=== PATIENT | female | born 2000 | race Caucasian/White ===

== ENCOUNTER 2019-05-26 10:43 | Outpatient (CLI) | payer MEDICAID ==
--- NOTE | 2019-05-26 13:14 | Non Stress Test Report ---
Non Stress Test Datetime Report Generated by CPN: 05/26/2019 13:14 DEMOGRAPHIC EGA NST: 35.1 INDICATION Indication for Study (NST) Other: iup 35.1 weeks macrosomia reactive NST MONITORING Monitor Explained: Monitor Explained; Test Explained; Patient Verbalized Understanding Time on Monitor: 05/26/2019 10:53 Time off Monitor: 05/26/2019 11:22 NST Duration: 29 NST INTERVENTIONS NST Interventions: PO Hydration Physician Notified NST: K Enamorado CNM BABY A: [id number] BABY A Movement : Present Contraction Frequency : occasional FHR Baseline : 140 Accelerations : 15X15 Decelerations : None Variability : Moderate 6-25bpm NST Review: Meets Criteria for Reactive NST NST Review and Verified By : Juan Alberto Patterson RN NST Results: Reactive NST REPORT Report Trigger: Send Report
== END 2019-05-26 11:38 | disposition home or self-care (01) ==
LOC: LC 10:43
PROVIDERS: ATTEND Student in an Organized Health Care Education/Training Program
PROC: 4A1HXCZ Monitoring of Products of Conception, Cardiac Rate, External Approach (ICD-10-PCS; principal; 2019-05-26)
DX: O36.63X0 Maternal care for excessive fetal growth, third trimester, not applicable or unspecified (principal); Z3A.35 35 weeks gestation of pregnancy

== ENCOUNTER 2019-06-06 10:37 | Inpatient (IN) | payer MEDICAID ==
[2019-06-06] MEDS ORDERED: BETAMET ACET/BETAMET NA INJ 6 MG/1 ML IM ONE (10:59)
[2019-06-06 11:13] LABS: APPEARANCE,URINE CLOUDY; BILIRUBIN,URINE NEGATIVE (NEGATIVE); COLOR,URINE YELLOW; GLUCOSE, URINE NEGATIVE (NEGATIVE); KETONES,URINE NEGATIVE (NEGATIVE); LEUKOCYTE ESTERASE,URINE MODERATE (NEGATIVE); NITRITE,URINE NEGATIVE (NEGATIVE); PROTEIN,URINE 30 mg/dL (NEGATIVE); URINE SPECIFIC GRAVITY 1.011; UROBILINOGEN,URINE NEGATIVE mg/dL (<2.0)
[2019-06-06 11:36] LABS: URINE AMPHETAMINES SCREEN NEGATIVE; URINE BARBITURATES SCREEN NEGATIVE; URINE BENZODIAZEPINES SCREEN NEGATIVE; URINE COCAINE SCREEN NEGATIVE; URINE MARIJUANA (THC) SCREEN NEGATIVE; URINE METHADONE SCREEN NEGATIVE; URINE PHENCYCLIDINE SCREEN NEGATIVE
--- NOTE | 2019-06-06 11:45 | Non Stress Test Report ---
Non Stress Test Datetime Report Generated by CPN: 06/06/2019 11:45 DEMOGRAPHIC EGA NST: 36.5 MONITORING Monitor Explained: Monitor Explained; Test Explained; Patient Verbalized Understanding Time on Monitor: 06/06/2019 10:55 Time off Monitor: 06/06/2019 11:41 NST Duration: 46 NST INTERVENTIONS NST Interventions: PO Hydration Physician Notified NST: K. Enamorado, CNM BABY A: [id number] BABY A Movement : Present Contraction Frequency : Rare FHR Baseline : 140 Accelerations : 15X15 Decelerations : None Variability : Moderate 6-25bpm NST Review: Meets Criteria for Reactive NST NST Review and Verified By : Juan Alberto Patterson RN NST Results: Reactive NST REPORT Report Trigger: Send Report
[2019-06-06 11:46] LABS: UR PRO/CREAT RATIO RESULT 0.3 mg/mg (0.0-0.2); URINE CREATININE 129.2 mg/dL (16-327); URINE PROTEIN 32.5 mg/dL (<12)
[2019-06-06 12:01] LABS: ABSOLUTE MONOCYTES (AUTO) 0.5 10^3/uL (0.1-1.4); ABSOLUTE NEUT (AUTO) 4.7 10^3/uL (1.7-8.2); BASOPHILS % (AUTO) 0.2 % (0-2); EOSINOPHILS % (AUTO) 0.4 % (0-6); HEMATOCRIT 30.7 % (36.0-47.0); HEMOGLOBIN 10.9 g/dL (12.0-15.5); LYMPHOCYTES % (AUTO) 27.4 % (13-45); MEAN CORPUSCULAR HEMOGLOBIN 31.4 pg (27.0-33.4); MEAN CORPUSCULAR HGB CONC 35.4 g/dL (32.0-36.0); MEAN CORPUSCULAR VOLUME 89 fl (80-97); MONOCYTES % (AUTO) 6.8 % (3-13); PLATELET COUNT 139 10^3/uL (150-450); RED BLOOD COUNT 3.47 10^6/uL (3.72-5.28); RED CELL DISTRIBUTION WIDTH 13.6 % (11.5-14.0); SEGMENTED NEUTROPHILS % (AUTO) 65.2 % (42-78); TOTAL CELLS COUNTED % (AUTO) 100 %; WHITE BLOOD COUNT 7.2 10^3/uL (4.0-10.5)
[2019-06-06 12:16] LABS: ALBUMIN 2.8 g/dL (3.7-5.6); ALKALINE PHOSPHATASE 205 U/L (50-135); ANION GAP 8 (5-19); ASPARTATE AMINO TRANSFERASE 33 U/L (5-30); BILIRUBIN,DIRECT 0.3 mg/dL (0.0-0.4); BILIRUBIN,TOTAL 0.3 mg/dL (0.2-1.3); BLOOD UREA NITROGEN 9 mg/dL (7-20); CALCIUM 9.7 mg/dL (8.4-10.2); CARBON DIOXIDE 24 mmol/L (22-30); CHLORIDE 105 mmol/L (98-107); POTASSIUM 3.8 mmol/L (3.6-5.0); TOTAL PROTEIN 5.6 g/dL (6.3-8.2); URIC ACID 6.5 mg/dL (2.5-6.2)
[2019-06-06 12:27] LABS: GLUCOSE 69 mg/dL (75-110)
--- NOTE | 2019-06-06 14:03 | RADIOLOGY REPORT (SQ) ---
EXAM DESCRIPTION: U/S OB LIMITED COMPLETED DATE/TIME: 06/06/2019 1:50 pm REASON FOR STUDY: HTN, estimated weight, fluid, presentation COMPARISON: None. TECHNIQUE: Limited transabdominal grayscale ultrasound for evaluation of specific requested obstetri anselmo parameters. LIMITATIONS: None. FINDINGS: CERVICAL LENGTH: Not applicable. Greater than 20 weeks. Need transvaginal study if indicat ed. PATRICE: 12.3 cm. LVP: 2.5 cm x 1.9 cm. FHR: 141 beats per minute. PRESENTATION: Cephalic. PLACENTA: Anterior. ANATOMY: Not assessed OTHER: EGA: 38 weeks 1 day. EDC: 06/19/2019. EFW: 3413 g +/-505 g. EFW: 74% IMPRESSION: LIMITED OBSTETRICAL ULTRASOUND WITH MEASURED PARAMETERS DELINEATED ABOVE. Trimester of : Third trimester - 28 weeks to delivery. TECHNICAL DOCUMENTATION: JOB ID: [id number] [employer]- All Rights Reserved Reading location - IP/workstation name: CARMINA
--- NOTE | 2019-06-06 14:12 | Admission Physical ---
Datetime Report Generated by CPN: 06/06/2019 14:12 CURRENT ADMISSION Chief Complaint: Sent from OB Office for Evaluation and Treatment - Please Specify Indication for Induction: Not Applicable Admit Impression : Obstetrical Complication Admit Impression- Other: GHTN vs Pre Eclampsia GDM Admit Plan: Observation/Evaluation ALLERGIES Medication Allergies: No Medication Allergies: No Known Allergies (05/26/2019) Latex: No Latex Allergies OBSTETRICAL HISTORY EDC: 06/29/2019 00:00 : 2 Para: 0 Term: 0 : 0 SAB: 1 IAB: 0 Ectopic: 0 Livin Cesareans: 0 VBACs: 0 Multiple Births: 0 SEE RECORDS Alcohol: No Marijuana : No Cocaine: No Other Illicit Drugs: No Cigarettes: Never Smoker. [id number] PHYSICAL EXAM General: Normal HEENT: Deferred Neurologic: Normal Thyroid: Deferred Heart: Normal Lungs: Normal Breast: Deferred Back: Deferred Abdomen: Normal Genitourinary Exam: Normal Extremities: Normal DTRs: Normal Pelvic Type: Adequate Vital Signs: Reviewed VAGINAL EXAM Dilatation: 1 Effacement: 50 Station: -2 MEMBRANES Membranes: Intact FETUS A EGA: 36.5 Monitoring: External US FHR- Baseline: 145 Variability: Moderate 6-25bpm Accelerations: 15X15 Decelerations: None Presentation: Vertex Admit Comment: OBS for 24*urine GHTN vs Pre E GDM PLANS FOR LABOR AND DELIVERY Labor and Delivery: None Pain Management: Natural Feeding Preference: Breast Benefit of Breast Feed Discussed: Yes Circumcision: Yes INFORMED CONSENT Assignment: Lor Portillo MD Signature: with User ID: Diana : with User ID: Diana
[2019-06-06 14:19] LABS: T.VAGINALIS (WET MOUNT) NO TRICHOMONAS SEEN; YEAST (WET MOUNT) NO YEAST SEEN
[2019-06-06] MEDS ORDERED: BETAMET ACET/BETAMET NA INJ 6 MG/1 ML ONE (14:19)
[2019-06-06 14:20] LABS: BACTERIA (WET MOUNT) 4+ BACTERIA SEEN; EPITHELIALS (WET MOUNT) 4+ EPITHELIALS SEEN; RBCS (WET MOUNT) FEW RBCS SEEN; WBCS (WET MOUNT) 3+ WBCS SEEN
[2019-06-06] MEDS ORDERED: NIFEDIPINE 30 MG TAB.ER.24 PO ONE (14:20)
[2019-06-06] MEDS: NIFEDIPINE 30 MG TAB.ER.24 PO SCH (14:25)
[2019-06-06] MEDS ORDERED: ACETAMINOPHEN 325 MG TABLET ONE (20:06)
[2019-06-06] MEDS ORDERED: BUTALB/ACETAMINOPHEN/CAFFEINE 1 TAB EACH ONE (20:58)
[2019-06-06] MEDS ORDERED: FAMOTIDINE 20 MG TABLET ONE (21:53)
[2019-06-06] MEDS: FAMOTIDINE 20 MG TABLET PO SCH (21:55)
[2019-06-06] MEDS ORDERED: BUTALB/ACETAMINOPHEN/CAFFEINE 1 TAB EACH PO ONE (22:12)
--- NOTE | 2019-06-06 22:12 | Non Stress Test Report ---
Non Stress Test Datetime Report Generated by CPN: 06/06/2019 22:12 DEMOGRAPHIC EGA NST: 36.5 INDICATION Indication for Study (NST) Other: lc MONITORING Monitor Explained: Monitor Explained; Test Explained; Patient Verbalized Understanding Time on Monitor: 06/06/2019 21:00 Time off Monitor: 06/06/2019 21:39 NST Duration: 39 NST INTERVENTIONS NST Interventions: PO Hydration; Reposition Patient Physician Notified NST: Dr Portillo BABY A: [id number] BABY A Movement : Present Contraction Frequency : irreg FHR Baseline : 125 Accelerations : 15X15 Decelerations : None Variability : Moderate 6-25bpm NST Review: Meets Criteria for Reactive NST NST Review and Verified By : MEGAN Cowart Results: Reactive NST REPORT Report Trigger: Send Report
[2019-06-07 07:13] LABS: HEMATOCRIT 30.9 % (36.0-47.0); HEMOGLOBIN 10.9 g/dL (12.0-15.5); MEAN CORPUSCULAR HEMOGLOBIN 31.2 pg (27.0-33.4); MEAN CORPUSCULAR HGB CONC 35.2 g/dL (32.0-36.0); MEAN CORPUSCULAR VOLUME 89 fl (80-97); PLATELET COUNT 143 10^3/uL (150-450); RED BLOOD COUNT 3.48 10^6/uL (3.72-5.28); RED CELL DISTRIBUTION WIDTH 13.4 % (11.5-14.0); WHITE BLOOD COUNT 10.3 10^3/uL (4.0-10.5)
[2019-06-07 07:24] LABS: ALBUMIN 3.1 g/dL (3.7-5.6); ALKALINE PHOSPHATASE 227 U/L (50-135); ANION GAP 12 (5-19); ASPARTATE AMINO TRANSFERASE 38 U/L (5-30); BILIRUBIN,DIRECT 0.3 mg/dL (0.0-0.4); BILIRUBIN,TOTAL 0.4 mg/dL (0.2-1.3); BLOOD UREA NITROGEN 8 mg/dL (7-20); CALCIUM 8.8 mg/dL (8.4-10.2); CARBON DIOXIDE 19 mmol/L (22-30); CHLORIDE 105 mmol/L (98-107); GLUCOSE 102 mg/dL (75-110); POTASSIUM 3.9 mmol/L (3.6-5.0); TOTAL PROTEIN 5.9 g/dL (6.3-8.2); URIC ACID 7.1 mg/dL (2.5-6.2)
[2019-06-07] MEDS: FAMOTIDINE 20 MG TABLET PO SCH ×2 (09:41→22:02)
[2019-06-07] MEDS: NIFEDIPINE 30 MG TAB.ER.24 PO SCH (09:41)
[2019-06-07 11:37] LABS: URINE PROTEIN 28.7 mg/dL (<12)
[2019-06-07 11:38] LABS: 24 HOUR URINE PROTEIN RESULT 947 mg/day (42-225)
--- NOTE | 2019-06-07 16:49 | PDOC PROGRESS REPORT ---
Subjective Progress Note for:: 06/07/19 Subjective:: Patient states that she feels good. Reports good movement. Patient denies headaches, vision changes and right upper quadrant tenderness. She is not isabela. Reason For Visit: IUP @ 36+6 Physical Exam - Physical Exam Vital Signs: Temp Pulse Resp BP Pulse Ox 98.1 F 100 H 18 139/80 H 97 06/07/19 15:51 06/07/19 15:51 06/07/19 15:51 06/07/19 15:51 06/07/19 15:51 Intake & Output 06/06/19 06/07/19 06/08/19 06:59 06:59 06:59 Output Total 1350 Balance -1350 Weight 118.6 kg General appearance: PRESENT: no acute distress Respiratory exam: PRESENT: clear to auscultation fabiola Cardiovascular exam: PRESENT: RRR GI/Abdominal exam: PRESENT: normal bowel sounds, soft - Negative for right upper quadrant tenderness Extremities exam: PRESENT: +2 edema - Bilateral pedal edema Result Laboratory Results: 06/07/19 06:48 06/07/19 06:48 06/06/19 06/07/19 06/07/19 10:45 06:48 06:48 WBC 10.3 RBC 3.48 L Hgb 10.9 L Hct 30.9 L MCV 89 MCH 31.2 MCHC 35.2 RDW 13.4 Plt Count 143 L Sodium 135.6 L Potassium 3.9 Chloride 105 Carbon Dioxide 19 L Anion Gap 12 BUN 8 Creatinine 0.45 L Est GFR ( Amer) > 60 Glucose 102 Uric Acid 7.1 H Calcium 8.8 Total Bilirubin 0.4 AST 38 H Alkaline Phosphatase 227 H Total Protein 5.9 L Albumin 3.1 L Ur 24 Hour Volume 3300 Ur Total Protein 24 Hr 947 H Impressions: Obstetrics Ultrasound 06/06/19 00:00 IMPRESSION: LIMITED OBSTETRICAL ULTRASOUND WITH MEASURED PARAMETERS DELINEATED ABOVE. Trimester of : Third trimester - 28 weeks to delivery. Assessment & Plan - Diagnosis (1) Preeclampsia Qualifiers: Trimester: third trimester Qualified Code(s): O14.93 - Unspecified pre- eclampsia, third trimester Is this a current diagnosis for this admission?: Yes (2) GDM, class A1 Is this a current diagnosis for this admission?: Yes (3) Obesity Qualifiers: Obesity type: due to excess calories Is this a current diagnosis for this admission?: Yes - Time Time Spent with patient: 15-24 minutes - Plan Summary Plan Summary: 1. Continue current care 2. Cervical ripening with Cervidil overnight for delivery--24-hour urine 900 mg proteinuria 3. Monitor closely
[2019-06-08] MEDS ORDERED: ONDANSETRON 4 MG TAB.RAPDIS PO ONE (09:00)
[2019-06-08] MEDS: NIFEDIPINE 30 MG TAB.ER.24 PO SCH (09:05)
[2019-06-08] MEDS: FAMOTIDINE 20 MG TABLET PO SCH (09:05)
[2019-06-08] MEDS ORDERED: ACETAMINOPHEN 325 MG TABLET PO ONE ×2 (13:00→15:45)
[2019-06-08] MEDS ORDERED: OXYTOCIN 10 UNIT/ML VIAL ONE (13:25)
[2019-06-08] MEDS ORDERED: OXYTOCIN/NORMAL SALINE 20 UNIT/1,000 ML RTUINJ ONE (13:26)
[2019-06-08] MEDS ORDERED: MISOPROSTOL 0.2 MG TABLET ONE (13:26)
[2019-06-08] MEDS ORDERED: LIDOCAINE 1% INJ-PF (10 MG/ML) 30 ML SDV ONE (13:26)
[2019-06-08] MEDS ORDERED: DINOPROSTONE 10 MG VAGINAL INSERT.SR ONE (13:26)
[2019-06-08] MEDS: RINGERS SOLUTION,LACTATED 1,000 ML IV PRN (13:35)
[2019-06-08] MEDS ORDERED: OXYTOCIN/NORMAL SALINE 20 UNIT/1,000 ML RTUINJ IV PRN (13:36)
[2019-06-08] MEDS ORDERED: RINGERS SOLUTION,LACTATED 300 ML IV ONE (13:36)
[2019-06-08] MEDS ORDERED: DINOPROSTONE 10 MG VAGINAL INSERT.SR PV PRN (13:36)
[2019-06-08] MEDS ORDERED: RINGERS SOLUTION,LACTATED 1,000 ML IV PRN (13:37)
[2019-06-08] MEDS ORDERED: NIFEDIPINE 30 MG TAB.ER.24 PO ONE (14:50)
[2019-06-08] MEDS ORDERED: ACETAMINOPHEN 325 MG TABLET ONE ×2 (15:50→21:44)
[2019-06-08] MEDS ORDERED: HYDRALAZINE HCL INJ/PF 20 MG/1 ML SDV IV ONE (16:18)
[2019-06-08] MEDS ORDERED: HYDRALAZINE HCL INJ/PF 20 MG/1 ML SDV ONE (16:19)
[2019-06-08] MEDS ORDERED: MAGNESIUM SULFATE 4 GM/100 ML RTUPB IV ONE ×2 (16:23→16:42)
[2019-06-08] MEDS ORDERED: MAGNESIUM SULFATE 20 GM/500 ML RTUINJ IV ONE (16:42)
[2019-06-08] MEDS: MAGNESIUM SULFATE 20 GM/500 ML RTUINJ IV PRN (17:14)
[2019-06-08] MEDS ORDERED: PROMETHAZINE HCL INJ 25 MG/1 ML VIAL ONE (19:20)
[2019-06-08] MEDS ORDERED: PROMETHAZINE HCL INJ 25 MG/1 ML VIAL IV ONE (19:20)
[2019-06-08] MEDS ORDERED: LABETALOL HCL INJ 20 MG/4 ML DISP.SYRIN IV ONE ×3 (20:19→20:26)
[2019-06-08] MEDS ORDERED: NALBUPHINE HCL INJ 10 MG/1 ML AMPULE INJ ONE (21:32)
[2019-06-08] MEDS ORDERED: MORPHINE SULFATE 10 MG/ML INJ IV ONE (21:43)
[2019-06-08] MEDS ORDERED: MORPHINE SULFATE 10 MG/ML INJ ONE (21:44)
[2019-06-09] MEDS ORDERED: MAGNESIUM SULFATE 20 GM/500 ML RTUINJ IV ONE ×3 (00:29→22:04)
[2019-06-09] MEDS: MAGNESIUM SULFATE 20 GM/500 ML RTUINJ IV PRN ×3 (02:03→22:06)
[2019-06-09] MEDS ORDERED: OXYTOCIN 10 UNIT/ML VIAL ONE (03:14)
[2019-06-09] MEDS ORDERED: MISOPROSTOL 0.2 MG TABLET ONE (03:15)
[2019-06-09] MEDS ORDERED: OXYTOCIN/NORMAL SALINE 0 UNIT/0 ML RTUINJ ONE ×2 (03:15→22:50)
[2019-06-09] MEDS ORDERED: PENICILLIN G-K 5 MILLION UNIT VIAL ONE ×5 (03:15→21:22)
[2019-06-09] MEDS ORDERED: LIDOCAINE 1% INJ-PF (10 MG/ML) 30 ML SDV ONE (03:15)
[2019-06-09] MEDS ORDERED: PENICILLIN G POTASSIUM 5,000,000 UNIT in DEXTROSE 5%-WATER 100 ML IV ONE (04:00)
[2019-06-09] MEDS: FAMOTIDINE 20 MG TABLET PO SCH (05:51)
[2019-06-09 06:56] LABS: ABSOLUTE LYMPHOCYTES (AUTO) 2.3 10^3/uL (0.5-4.7); ABSOLUTE MONOCYTES (AUTO) 1.1 10^3/uL (0.1-1.4); ABSOLUTE NEUT (AUTO) 10.7 10^3/uL (1.7-8.2); BASOPHILS % (AUTO) 0.3 % (0-2); HEMATOCRIT 31.2 % (36.0-47.0); HEMOGLOBIN 10.6 g/dL (12.0-15.5); LYMPHOCYTES % (AUTO) 16.4 % (13-45); MEAN CORPUSCULAR HEMOGLOBIN 30.7 pg (27.0-33.4); MEAN CORPUSCULAR VOLUME 90 fl (80-97); PLATELET COUNT 167 10^3/uL (150-450); RED BLOOD COUNT 3.45 10^6/uL (3.72-5.28); SEGMENTED NEUTROPHILS % (AUTO) 75.3 % (42-78); TOTAL CELLS COUNTED % (AUTO) 100 %; WHITE BLOOD COUNT 14.2 10^3/uL (4.0-10.5)
[2019-06-09 07:14] LABS: ALBUMIN 3.2 g/dL (3.7-5.6); ALKALINE PHOSPHATASE 247 U/L (50-135); ANION GAP 11 (5-19); ASPARTATE AMINO TRANSFERASE 36 U/L (5-30); BILIRUBIN,DIRECT 0.3 mg/dL (0.0-0.4); BILIRUBIN,TOTAL 0.3 mg/dL (0.2-1.3); BLOOD UREA NITROGEN 8 mg/dL (7-20); CALCIUM 8.9 mg/dL (8.4-10.2); CARBON DIOXIDE 20 mmol/L (22-30); CHLORIDE 103 mmol/L (98-107); GLUCOSE 93 mg/dL (75-110); POTASSIUM 3.8 mmol/L (3.6-5.0); TOTAL PROTEIN 6.2 g/dL (6.3-8.2); URIC ACID 6.9 mg/dL (2.5-6.2)
[2019-06-09] MEDS ORDERED: ONDANSETRON HCL INJ/PF 4 MG/2 ML SDV IV ONE (08:46)
[2019-06-09] MEDS ORDERED: ONDANSETRON HCL INJ/PF 4 MG/2 ML SDV ONE (08:56)
[2019-06-09] MEDS: PENICILLIN G POTASSIUM 2,500,000 UNIT in DEXTROSE 5%-WATER 50 ML IV SCH ×4 (09:13→21:35)
[2019-06-09] MEDS ORDERED: HYDROMORPHONE HCL INJ/PF 2 MG/ML AMPULE ONE (09:42)
[2019-06-09] MEDS ORDERED: LABETALOL HCL INJ 20 MG/4 ML DISP.SYRIN IV ONE ×3 (09:43→16:21)
[2019-06-09] MEDS ORDERED: HYDROMORPHONE HCL INJ/PF 2 MG/ML AMPULE IV ONE ×2 (11:00→13:57)
[2019-06-09] MEDS: RINGERS SOLUTION,LACTATED 1,000 ML IV PRN (13:00)
[2019-06-09] MEDS ORDERED: ONDANSETRON HCL 8 MG TABLET ONE (13:18)
[2019-06-09] MEDS ORDERED: ONDANSETRON HCL 8 MG TABLET PO ONE (13:19)
[2019-06-09 14:53] LABS: HEMATOCRIT 31.3 % (36.0-47.0); HEMOGLOBIN 10.7 g/dL (12.0-15.5); MEAN CORPUSCULAR HGB CONC 34.2 g/dL (32.0-36.0); MEAN CORPUSCULAR VOLUME 91 fl (80-97); PLATELET COUNT 161 10^3/uL (150-450); RED BLOOD COUNT 3.46 10^6/uL (3.72-5.28); RED CELL DISTRIBUTION WIDTH 14.2 % (11.5-14.0)
[2019-06-09 15:07] LABS: ALBUMIN 3.2 g/dL (3.7-5.6); ALKALINE PHOSPHATASE 264 U/L (50-135); ANION GAP 12 (5-19); ASPARTATE AMINO TRANSFERASE 33 U/L (5-30); BILIRUBIN,DIRECT 0.3 mg/dL (0.0-0.4); BILIRUBIN,TOTAL 0.4 mg/dL (0.2-1.3); BLOOD UREA NITROGEN 7 mg/dL (7-20); CALCIUM 8.7 mg/dL (8.4-10.2); CARBON DIOXIDE 20 mmol/L (22-30); CHLORIDE 101 mmol/L (98-107); GLUCOSE 90 mg/dL (75-110); POTASSIUM 3.9 mmol/L (3.6-5.0)
[2019-06-09 15:36] LABS: ABSOLUTE LYMPHOCYTES# (MANUAL) 2.1 10^3/uL (0.5-4.7); ABSOLUTE MONOCYTES # (MANUAL) 0.6 10^3/uL (0.1-1.4); BASOPHILS % (MANUAL) 0 % (0-2); EOSINOPHILS % (MANUAL) 0 % (0-6); LYMPHOCYTES % (MANUAL) 15 % (13-45); MONOCYTES % (MANUAL) 4 % (3-13); PLATELET COMMENT ADEQUATE; SEGMENTED NEUTROPHILS % (MAN) 81 % (42-78); TOTAL CELLS COUNTED 100
[2019-06-09 15:37] LABS: HYPOCHROMASIA SLIGHT; POLYCHROMASIA SLIGHT
[2019-06-09] MEDS ORDERED: EPHEDRINE SULFATE INJ 50 MG/1 ML AMPULE ONE (16:55)
[2019-06-09] MEDS ORDERED: FENTANYL CITRATE INJ/PF 100 MCG/2 ML AMPUL ONE (16:55)
[2019-06-09] MEDS ORDERED: PHENYLEPHRINE HCL INJ/PF 10 MG/1 ML SDV ONE (16:55)
[2019-06-09] MEDS ORDERED: BUPIVACAINE HCL 0.25 % INJ/PF (2.5 MG/1 ML) 30 ML VIAL ONE (16:56)
[2019-06-09] MEDS ORDERED: FENTANYL/BUPIVACAINE/NS/PF 300 MCG/150 ML RTUINJ EPI ONE (16:56)
[2019-06-09] MEDS ORDERED: LIDOCAINE 1.5%/EPINEPHRINE INJ 5 ML AMP ONE (18:05)
[2019-06-09] MEDS ORDERED: CALCIUM CARBONATE 500 MG TAB.CHEW PO ONE (21:21)
[2019-06-09] MEDS ORDERED: OXYTOCIN/NORMAL SALINE 20 UNIT/1,000 ML RTUINJ IV PRN (22:48)
[2019-06-10] MEDS ORDERED: PENICILLIN G-K 5 MILLION UNIT VIAL ONE ×2 (01:19→05:34)
[2019-06-10] MEDS: PENICILLIN G POTASSIUM 2,500,000 UNIT in DEXTROSE 5%-WATER 50 ML IV SCH ×4 (01:30→12:08)
[2019-06-10] MEDS ORDERED: FENTANYL/BUPIVACAINE/NS/PF 300 MCG/150 ML RTUINJ EPI ONE (04:22)
[2019-06-10] MEDS: RINGERS SOLUTION,LACTATED 1,000 ML IV PRN (06:23)
[2019-06-10] MEDS ORDERED: CEFAZOLIN INJ 1 GM VIAL ONE ×2 (07:06)
--- NOTE | 2019-06-10 07:10 | PDOC PROGRESS REPORT ---
Subjective Progress Note for:: 06/09/19 Subjective:: Good FM. No ZIEGLER, CP, SOB,RUQ pain or n/v. She is feeling some contractions but nothing regular or very painful. No LOF Reason For Visit: INDUCTION OF LABOR Physical Exam - Physical Exam Vital Signs: Temp Pulse Resp BP Pulse Ox 97.9 F 81 18 144/95 H 97 06/08/19 07:57 06/08/19 07:57 06/08/19 07:57 06/08/19 07:57 06/08/19 07:57 Intake & Output 06/09/19 06/10/19 06/11/19 06:59 06:59 06:59 Intake Total 1891981 Balance 1891981 General appearance: PRESENT: no acute distress, cooperative Respiratory exam: PRESENT: clear to auscultation fabiola Cardiovascular exam: PRESENT: RRR, +S1, +S2 Extremities exam: PRESENT: full ROM. ABSENT: calf tenderness - Reflexes 1/4 BLE, clubbing, pedal edema - Gynecological Exam Cervix: other - 1-2/50/-3 AROM'd mod meconium Result Laboratory Results: 06/09/19 06/09/19 06/09/19 06:26 14:29 14:29 WBC 14.0 H RBC 3.46 L Hgb 10.7 L Hct 31.3 L MCV 91 MCH 31.0 MCHC 34.2 RDW 14.2 H Plt Count 161 Seg Neutrophils % Not Reportable Sodium 133.9 L 133.0 L Potassium 3.8 3.9 Chloride 103 101 Carbon Dioxide 20 L 20 L Anion Gap 11 12 BUN 8 7 Creatinine 0.52 0.58 Est GFR ( Amer) > 60 > 60 Glucose 93 90 Uric Acid 6.9 H 7.0 H Calcium 8.9 8.7 Total Bilirubin 0.3 0.4 AST 36 H 33 H Alkaline Phosphatase 247 H 264 H Total Protein 6.2 L 6.0 L Albumin 3.2 L 3.2 L Blood Type Antibody Screen 06/09/19 14:29 WBC RBC Hgb Hct MCV MCH MCHC RDW Plt Count Seg Neutrophils % Sodium Potassium Chloride Carbon Dioxide Anion Gap BUN Creatinine Est GFR ( Amer) Glucose Uric Acid Calcium Total Bilirubin AST Alkaline Phosphatase Total Protein Albumin Blood Type A NEGATIVE Antibody Screen POSITIVE Impressions: Obstetrics Ultrasound 06/06/19 00:00 IMPRESSION: LIMITED OBSTETRICAL ULTRASOUND WITH MEASURED PARAMETERS DELINEATED ABOVE. Trimester of : Third trimester - 28 weeks to delivery. Assessment & Plan - Time Time Spent with patient: Less than 15 minutes
[2019-06-10 07:15] LABS: ABSOLUTE BASOPHILS # (AUTO) 0.1 10^3/uL (0.0-0.2); ABSOLUTE LYMPHOCYTES (AUTO) 1.7 10^3/uL (0.5-4.7); ABSOLUTE MONOCYTES (AUTO) 1.1 10^3/uL (0.1-1.4); ABSOLUTE NEUT (AUTO) 11.8 10^3/uL (1.7-8.2); BASOPHILS % (AUTO) 0.5 % (0-2); HEMATOCRIT 29.6 % (36.0-47.0); HEMOGLOBIN 10.3 g/dL (12.0-15.5); LYMPHOCYTES % (AUTO) 11.7 % (13-45); MEAN CORPUSCULAR HEMOGLOBIN 31.1 pg (27.0-33.4); MEAN CORPUSCULAR HGB CONC 34.8 g/dL (32.0-36.0); MEAN CORPUSCULAR VOLUME 89 fl (80-97); MONOCYTES % (AUTO) 7.4 % (3-13); PLATELET COUNT 158 10^3/uL (150-450); RED BLOOD COUNT 3.31 10^6/uL (3.72-5.28); RED CELL DISTRIBUTION WIDTH 13.7 % (11.5-14.0); SEGMENTED NEUTROPHILS % (AUTO) 80.4 % (42-78); TOTAL CELLS COUNTED % (AUTO) 100 %; WHITE BLOOD COUNT 14.7 10^3/uL (4.0-10.5)
[2019-06-10] MEDS ORDERED: CITRIC ACID/SODIUM CITRATE ORAL SOLN 15 ML UDCUP ONE (07:16)
--- NOTE | 2019-06-10 07:17 | PDOC PROGRESS REPORT ---
Subjective Progress Note for:: 06/10/19 Subjective:: [place] some vaginal pressure but it is not as strong now. No ZIEGLER, CP, SOB, RUQ pain or n/v. Reason For Visit: INDUCTION OF LABOR Physical Exam - Physical Exam Vital Signs: Temp Pulse Resp BP Pulse Ox 97.9 F 81 18 144/95 H 97 06/08/19 07:57 06/08/19 07:57 06/08/19 07:57 06/08/19 07:57 06/08/19 07:57 Intake & Output 06/09/19 06/10/19 06/11/19 06:59 06:59 06:59 Intake Total 1891 1981 Balance 1891981 General appearance: PRESENT: no acute distress, cooperative Respiratory exam: PRESENT: clear to auscultation fabiola Cardiovascular exam: PRESENT: RRR, +S1, +S2 Neurological exam: PRESENT: alert, awake, oriented to person, oriented to place, oriented to time - Gynecological Exam Cervix: other - 4/90/-3 Cervix: other Result Laboratory Results: 06/09/19 06/09/19 06/09/19 06:26 14:29 14:29 WBC 14.0 H RBC 3.46 L Hgb 10.7 L Hct 31.3 L MCV 91 MCH 31.0 MCHC 34.2 RDW 14.2 H Plt Count 161 Seg Neutrophils % Not Reportable Sodium 133.9 L 133.0 L Potassium 3.8 3.9 Chloride 103 101 Carbon Dioxide 20 L 20 L Anion Gap 11 12 BUN 8 7 Creatinine 0.52 0.58 Est GFR ( Amer) > 60 > 60 Glucose 93 90 Uric Acid 6.9 H 7.0 H Calcium 8.9 8.7 Total Bilirubin 0.3 0.4 AST 36 H 33 H Alkaline Phosphatase 247 H 264 H Total Protein 6.2 L 6.0 L Albumin 3.2 L 3.2 L Blood Type Antibody Screen 06/09/19 14:29 WBC RBC Hgb Hct MCV MCH MCHC RDW Plt Count Seg Neutrophils % Sodium Potassium Chloride Carbon Dioxide Anion Gap BUN Creatinine Est GFR ( Amer) Glucose Uric Acid Calcium Total Bilirubin AST Alkaline Phosphatase Total Protein Albumin Blood Type A NEGATIVE Antibody Screen POSITIVE Impressions: Obstetrics Ultrasound 06/06/19 00:00 IMPRESSION: LIMITED OBSTETRICAL ULTRASOUND WITH MEASURED PARAMETERS DELINEATED ABOVE. Trimester of : Third trimester - 28 weeks to delivery. Assessment & Plan - Diagnosis (1) Failure to progress in labor Is this a current diagnosis for this admission?: Yes (2) GDM, class A1 Is this a current diagnosis for this admission?: Yes (3) Gestational hypertension Qualifiers: Trimester: third trimester Qualified Code(s): O13.3 - Gestational [-induced] hypertension without significant proteinuria, third trimester Is this a current diagnosis for this admission?: Yes (4) Obesity Qualifiers: Obesity type: due to excess calories Is this a current diagnosis for this admission?: Yes (5) Preeclampsia Qualifiers: Trimester: third trimester Qualified Code(s): O14.93 - Unspecified pre- eclampsia, third trimester Is this a current diagnosis for this admission?: Yes - Time Time Spent with patient: 15-24 minutes - 18 yo G1 at 37.1 wks EGA who is undergoing IOL for severe preE on Mag sulfate She has been on pitocin for >24 hrs iwth a one hour Pitocin break and the adequate MVUs monitored by [facility]. She stopped dilating at 4-5 cm and station still -3 . Discussed iwth her that we have maxed out on Pitocin and have adequate MVUs. Now failure to progess and arrest of descent. Recommend PCS and she is amendable. RIsks, benefits and alternatives reviewed. Anesthesia, OR and charge nurse notified.
[2019-06-10] MEDS ORDERED: LIDOCAINE 1.5%/EPINEPHRINE INJ 5 ML AMP ONE (07:26)
[2019-06-10 07:37] LABS: ALBUMIN 2.9 g/dL (3.7-5.6); ALKALINE PHOSPHATASE 256 U/L (50-135); ANION GAP 10 (5-19); ASPARTATE AMINO TRANSFERASE 30 U/L (5-30); BILIRUBIN,DIRECT 0.3 mg/dL (0.0-0.4); BILIRUBIN,TOTAL 0.4 mg/dL (0.2-1.3); BLOOD UREA NITROGEN 9 mg/dL (7-20); CALCIUM 9.1 mg/dL (8.4-10.2); CARBON DIOXIDE 20 mmol/L (22-30); CHLORIDE 103 mmol/L (98-107); GLUCOSE 88 mg/dL (75-110); POTASSIUM 3.9 mmol/L (3.6-5.0); TOTAL PROTEIN 5.7 g/dL (6.3-8.2); URIC ACID 7.9 mg/dL (2.5-6.2)
[2019-06-10] MEDS ORDERED: ONDANSETRON HCL INJ/PF 4 MG/2 ML SDV ONE (07:37)
[2019-06-10] MEDS ORDERED: FENTANYL CITRATE INJ/PF 100 MCG/2 ML AMPUL ONE ×2 (07:38→08:26)
[2019-06-10] MEDS ORDERED: OXYTOCIN 10 UNIT/ML VIAL ONE (07:38)
[2019-06-10] MEDS ORDERED: KETOROLAC TROMETHAMINE 60 MG/2 ML SDV ONE (07:38)
[2019-06-10] MEDS ORDERED: LIDOCAINE 2% INJ-PF (20 MG/ML) 10 ML AMPUL ONE (07:41)
[2019-06-10] MEDS ORDERED: CARBOPROST TROMETHAMINE INJ 250 MCG/1 ML AMPULE ONE (08:29)
[2019-06-10] MEDS ORDERED: METHYLERGONOVINE MALEATE INJ/PF 0.2 MG/1 ML AMPULE ONE (08:29)
[2019-06-10] MEDS ORDERED: NORMAL SALINE 250 ML IV PRN ×2 (08:41→12:38)
[2019-06-10] MEDS ORDERED: ACETAMINOPHEN 1,000 MG/100 ML RTUPB IV ONE (08:45)
[2019-06-10] MEDS ORDERED: GLUCAGON,HUMAN RECOMB 1 MG INJ SUBCUT PRN (09:13)
[2019-06-10] MEDS ORDERED: HYDROMORPHONE HCL INJ/PF 2 MG/ML AMPULE IV PRN (09:13)
[2019-06-10] MEDS ORDERED: PROMETHAZINE HCL INJ 25 MG/1 ML VIAL IV PRN (09:13)
[2019-06-10] MEDS ORDERED: OXYTOCIN/NORMAL SALINE 20 UNIT/1,000 ML RTUINJ IV PRN (09:13)
[2019-06-10] MEDS ORDERED: DEXTROSE 50%-WATER 25 GM/50 ML DISP.SYRIN IV PRN ×2 (09:13)
[2019-06-10] MEDS ORDERED: ACETAMINOPHEN 325 MG TABLET PO PRN (09:13)
[2019-06-10] MEDS ORDERED: DIPH/PERTUSS(ACELL)/TETANUS VAC/PF 0.5 ML SYR (>=10YO) IM PRN (09:13)
[2019-06-10] MEDS ORDERED: DEXTROSE 40% GEL 15 GM TUBE PO PRN ×2 (09:13)
[2019-06-10] MEDS ORDERED: MEASLES,MUMPS&RUBELLA VACC/PF 0.5 ML VIAL SUBCUT PRN (09:13)
[2019-06-10] MEDS ORDERED: HYDROMORPHONE HCL INJ/PF 2 MG/ML AMPULE ONE (09:28)
--- NOTE | 2019-06-10 09:33 | Operative Report ---
Operative Report DATE OF SURGERY: 06/10/19 PREOPERATIVE DIAGNOSIS: IUP at 37.0 wks EGA. Severe preeclampsia. Gestational diabetes POSTOPERATIVE DIAGNOSIS: Same as above. Uterine atony OPERATION: Primary SURGEON: TRACEY CASTILLO ANESTHESIA: Spinal TISSUE REMOVED OR ALTERED: Placenta COMPLICATIONS: Small extension laterally on right lower uterine segment T-incision made on uterus approximately 2 cm cephalad ESTIMATED BLOOD LOSS: 2,000 INTRAOPERATIVE FINDINGS: Normal appearing uterus, bilateral fallopian tubes and ovaries. Viable male infant with apgars of 5 and 8 at one and 5 minutes respectfully. Placenta was anterior. Head was too large to delivery with standar hysterotomy incision. THis was extended laterally and still more room needed. A T-incision was made in the uterus approximately 2 cm PROCEDURE: IV fluids: per anesthesia record 2 liters Urinary output: 220 cc Findings: Normal-appearing uterus bilateral fallopian tubes and ovaries. Placenta anterior .Viable male with Apgars of 5 and 8, at 1 and 5 minutes respectively. Position: To recovery room in stable condition Description of procedure: The patient was taken to the operating room and general anesthesia was administered and found to be adequate. She was then placed on the OR table in the supine position with a slight leftward tilt. Patient was prepped and draped in usual sterile fashion. Ancef 2 gms was given IV prior to the procedure for infection prophylaxis . Timeout was taken. A Pfannenstiel skin incision was then made approximately 3 cm above the pubic symphysis and carried down to level the rectus fascia. The rectus fascia was then nicked in the midline with a scalpel and the fascial incision was extended laterally with use of curved Palma scissors. The rectus fascia was then grasped with 2 Kocker clamps elevated and the underlying rectus muscle was dissected off both bluntly and sharply. Any bleeding controlled with cautery. The rectus muscles were then split in the midline and the peritoneum was entered. The peritoneal incision was then extended by manually stretching the peritoneum. The bladder blade was positioned. Using pick ups and metzenbaum scissors a bladder flap was created. The bladder was noted to be out of harm's way. A scalpel was then used in the lower uterine for the hysterotomy, slowly until amniotomy was obtained a large amount of clear fluid was noted. The placenta was anterior and bleeding began on entry to the uterus. The uterine incision was then manually stretched. The infant was noted to be in vertex postion -deep in the pelvis. Using a hand deep in pelvis, the head was elevated and brought to the hysterotomy incision. The head then delivered with some difficulty and a Kiwi vacuum and extension of the uterine incision laterally and the in a T fashion for approximately 2 cm was required. An catrina retractor was placed also to assist in delivery. After the head, the shoulders and the rest of the body followed immediately. The cord was cut clamped and the infant was handed off to the nurse awaiting. The placenta was manually delivered. Using a lap gauze the uterus was cleared of all clots and debris. The uterus was then exteriorized and a bladder blade was repositioned. The uterine incision was then closed with 0 Chromic suture in a running locked fashion. A second layer of the same suture was used in a running locked imbricated fashion. The uterine incision was inspected and noted to be hemostatic. Retractor was removed. The posterior aspect of the uterus was then inspected and anatomy was seen as above. The uterus was returned to its normal anatomic position within the abdominal cavity. Warm saline irrigation was used to clear all clots and debris from the abdomen. The uterine incision was inspected once more and noted to remain hemostatic. The bladder blade was removed and the peritoneum was closed with 2-0 chromic in a running fashion. The rectus muscles were then reapproximated and the rectus fascia was closed with a #1 PDS in a running fashion. The subcutaneous tissue was then inspected and any bleeding was controlled with Bovie electrocautery. The subcutaneous tissue was then closed with 2-0 Plain Gut suture in a running fashion. The skin was then closed with 3-0 Monocryl in a running subcuticular fashion. The skin incision was then clean dried and Dermabond was applied over the skin incision. All instrument sponge and needle counts were correct x3 for the procedure the patient tolerated the procedure well. She will proceed to recovery room in stable condition
[2019-06-10] MEDS ORDERED: CEFAZOLIN 1 GM/D5W RTU 2 GM/100 ML RTUPB IV ONE (09:45)
[2019-06-10 10:29] LABS: ABSOLUTE LYMPHOCYTES (AUTO) 1.3 10^3/uL (0.5-4.7); ABSOLUTE MONOCYTES (AUTO) 1.3 10^3/uL (0.1-1.4); BASOPHILS % (AUTO) 0.2 % (0-2); LYMPHOCYTES % (AUTO) 6.5 % (13-45); MEAN CORPUSCULAR HEMOGLOBIN 30.3 pg (27.0-33.4); MEAN CORPUSCULAR HGB CONC 33.8 g/dL (32.0-36.0); MEAN CORPUSCULAR VOLUME 90 fl (80-97); MONOCYTES % (AUTO) 6.8 % (3-13); PLATELET COUNT 158 10^3/uL (150-450); RED BLOOD COUNT 2.56 10^6/uL (3.72-5.28); SEGMENTED NEUTROPHILS % (AUTO) 86.5 % (42-78); TOTAL CELLS COUNTED % (AUTO) 100 %; WHITE BLOOD COUNT 19.6 10^3/uL (4.0-10.5)
[2019-06-10 11:27] LABS: HEMOGLOBIN 7.8 g/dL (12.0-15.5)
[2019-06-10] MEDS: FAMOTIDINE 20 MG TABLET PO SCH (12:05)
[2019-06-10] MEDS: DOCUSATE SODIUM 100 MG CAPSULE PO SCH ×2 (12:09→19:00)
[2019-06-10] MEDS: KETOROLAC TROMETHAMINE INJ/PF 30 MG/1 ML SDV IV SCH ×2 (12:09→16:37)
[2019-06-10] MEDS: PRENATAL VITAMIN W DHA CAPSULE PO SCH (12:09)
[2019-06-10] MEDS: CEFAZOLIN 2 GM/D5W RTU 2 GM/50 ML RTUPB IV SCH ×2 (12:09→16:38)
[2019-06-10] MEDS ORDERED: METOCLOPRAMIDE HCL INJ/PF 10 MG/2 ML SDV ONE (12:38)
[2019-06-10] MEDS ORDERED: PHENYLEPHRINE HCL INJ/PF 10 MG/1 ML SDV ONE (12:38)
[2019-06-10 13:26] LABS: ABSOLUTE LYMPHOCYTES (AUTO) 1.7 10^3/uL (0.5-4.7); ABSOLUTE MONOCYTES (AUTO) 1.6 10^3/uL (0.1-1.4); ABSOLUTE NEUT (AUTO) 17.6 10^3/uL (1.7-8.2); BASOPHILS % (AUTO) 0.2 % (0-2); HEMATOCRIT 28.8 % (36.0-47.0); HEMOGLOBIN 9.8 g/dL (12.0-15.5); LYMPHOCYTES % (AUTO) 8.3 % (13-45); MEAN CORPUSCULAR HEMOGLOBIN 29.8 pg (27.0-33.4); MEAN CORPUSCULAR HGB CONC 34.2 g/dL (32.0-36.0); MEAN CORPUSCULAR VOLUME 87 fl (80-97); MONOCYTES % (AUTO) 7.8 % (3-13); PLATELET COUNT 137 10^3/uL (150-450); RED CELL DISTRIBUTION WIDTH 15.4 % (11.5-14.0); SEGMENTED NEUTROPHILS % (AUTO) 83.7 % (42-78); TOTAL CELLS COUNTED % (AUTO) 100 %; WHITE BLOOD COUNT 20.9 10^3/uL (4.0-10.5)
[2019-06-10 13:27] LABS: INTERNATIONAL RATION (INR) 1.06; PROTHROMBIN TIME 13.8 SEC (11.4-15.4)
[2019-06-10 13:41] LABS: ALBUMIN 2.2 g/dL (3.7-5.6); ALKALINE PHOSPHATASE 191 U/L (50-135); ANION GAP 7 (5-19); ASPARTATE AMINO TRANSFERASE 25 U/L (5-30); BILIRUBIN,DIRECT 0.3 mg/dL (0.0-0.4); BILIRUBIN,TOTAL 0.3 mg/dL (0.2-1.3); BLOOD UREA NITROGEN 10 mg/dL (7-20); CALCIUM 8.5 mg/dL (8.4-10.2); CARBON DIOXIDE 21 mmol/L (22-30); CHLORIDE 103 mmol/L (98-107); GLUCOSE 129 mg/dL (75-110); POTASSIUM 4.3 mmol/L (3.6-5.0); TOTAL PROTEIN 4.7 g/dL (6.3-8.2)
[2019-06-10 13:49] LABS: PARTIAL THROMBOPLASTIN TIME < 23.0 SEC (23.5-35.8)
[2019-06-10] MEDS ORDERED: DIPHENHYDRAMINE HCL 50 MG/ML VIAL ONE (14:37)
[2019-06-10] MEDS ORDERED: EPINEPHRINE INJ 1 MG/10 ML DISP.SYRIN ONE (14:54)
[2019-06-10] MEDS ORDERED: FUROSEMIDE INJ/PF 40 MG/4 ML SDV ONE (15:00)
[2019-06-10] MEDS ORDERED: DEXAMETHASONE SOD PHOSPHATE INJ 4 MG/1 ML VIAL ONE (15:01)
[2019-06-10] MEDS ORDERED: ALBUTEROL SULFATE 0.083% NEB 2.5 MG/3 ML AMPUL NEB ONE (15:09)
[2019-06-10] MEDS ORDERED: FAMOTIDINE INJ/PF 20 MG/2 ML SDV IV ONE ×2 (15:12→21:00)
[2019-06-10] MEDS ORDERED: ALBUTEROL SULFATE 0.083% NEB 2.5 MG/3 ML AMPUL NEB PRN ×2 (16:02→16:07)
[2019-06-10] MEDS ORDERED: NORMAL SALINE 1000 ML 1,000 ML IV PRN (16:32)
[2019-06-10 16:34] LABS: COLOR,URINE YELLOW
[2019-06-10 16:35] LABS: APPEARANCE,URINE CLOUDY; BILIRUBIN,URINE NEGATIVE (NEGATIVE); GLUCOSE, URINE NEGATIVE (NEGATIVE); KETONES,URINE NEGATIVE (NEGATIVE); URINE SPECIFIC GRAVITY 1.029
[2019-06-10 16:36] LABS: LEUKOCYTE ESTERASE,URINE NEGATIVE (NEGATIVE); NITRITE,URINE NEGATIVE (NEGATIVE); PROTEIN,URINE 100 mg/dL (NEGATIVE); UROBILINOGEN,URINE NEGATIVE mg/dL (<2.0)
[2019-06-10] MEDS ORDERED: OXYCODONE-ACETAMINOPHEN 5-325 MG TABLET ONE ×2 (17:06→19:10)
[2019-06-10] MEDS: OXYCODONE-ACETAMINOPHEN 5-325 MG TABLET PO PRN (17:10)
--- NOTE | 2019-06-10 17:43 | Delivery Summary ---
Del Sum A-C Datetime Report Generated by CPN: 06/10/2019 17:43 DELIVERY PERSONNEL DELIVERY PERSONNEL: [id number] Delivery Doctor:: Annmarie Irving MD Anesthesiologist:: Fallon Workman MD CONSULAR OFFICER:: Medina Keys CRNA Labor and Delivery Nurse:: Melissa Amezcua RNcurb and gutter laborer Nurse:: Kia Bliss RN Petroleum Supply Specialist:: Melissa Amezcua RN Neonatal Nurse Practitioner:: JUANJO [place] Nursery Nurse:: Sara Maravilla RN Laundry Operator Finishing/INSURANCE UNDERWRITER: Prieto Brush CST Laundry Operator Finishing/INSURANCE UNDERWRITER: Abi aGn, ST MATERNAL INFORMATION Delivery Anesthesia: Epidural Medications After Delivery: Pitocin Bolus-Please Comment; Methergine 0.2mg IM Meds After Delivery Comment: 20 units in 1000 ml NSS x2 bags Delivery QBL: 2852 Maternal Complications: Prolonged Labor > 20 Hrs Provider Comments: See operative report LABOR SUMMARY EDC: 06/29/2019 00:00 No. Babies in Womb: 1 Attempted: No Labor Anesthesia: Epidural LABOR INFORMATION Reason for Induction: Pre-Eclampsia Cervical Ripening Agents: Cervidil Oxytocin: Induction Group B Beta Strep: POSITIVE Antibiotics # of Doses: 6 Antibiotics Time of Last Dose: 542 Name of Antibiotic Given: PCN Steroids Given: None Reason Steroids Not Administered: Not Applicable MEMBRANES Membranes Rupture Method: Artificial Rupture of Membranes: 06/09/2019 16:16 Length of Rupture (hr): 16.12 Amniotic Fluid Color: Moderate Meconium Amniotic Fluid Amount: Moderate Amniotic Fluid Odor: Normal STAGES OF LABOR Stage 3 hr: 0 Stage 3 min: 1 VAGINAL DELIVERY Episiotomy: None Laceration #1: None Laceration Extension #1: N/A Laceration Repair: Not Applicable Sponge Count Correct: N/A Sharps Count Correct: N/A CSECTION DELIVERY Primary Indication: Other Other Primary Indication: failure to progress CSection Urgency: Non-Scheduled CSection Incidence: Primary Labor: Labor Elective: Nonelective CSection Incision: Lower Uterine Transverse BABY A INFORMATION Infant Delivery Date/Time: 06/10/2019 08:23 Method of Delivery: Nurse Controlled Delivery: No Born in Route : No : N/A Forceps: N/A Vacuum Extraction: N/A Shoulder Dystocia : No PRESENTATION/POSITION BABY A Presentation: Cephalic Cephalic Presentation: Vertex Breech Presentation: N/A PLACENTA INFORMATION BABY A Placenta Delivery Time : 06/10/2019 08:24 Placenta Method of Delivery: Manual Removal Placenta Status: Delivered SCORES BABY A Heart Rate 1 min: Slow, Below 100 bpm Resp Effort 1 min: Slow, Irregular Reflex Irritability 1 min: Grimace Muscle Tone 1 min: Flaccid Color 1 min: Blue/Pale Resuscitation Effort 1 min: Tactile Stimulation; Oxygen; PPV/NCPAP SCORE 1 MIN: 3 Heart Rate 5 min: >100 bpm Resp Effort 5 min: Good Cry Reflex Irritability 5 min: Cough or Sneeze or Pulls Away Muscle Tone 5 min: Some Flexion of Extremities Color 5 min: Body Bertha, Extremities Blue Resuscitation Effort 5 min: N/A SCORE 5 MIN: 8 INFORMATION BABY A Gestational Age at Delivery: 37.2 Gestational Status: Early Term- 37- 38.6 Weeks Outcome : Liveborn Condition : Stable Sex: Male IDENTIFICATION BABY A Verification Date/Time: 06/10/2019 08:35 ID Band Number: [id number] Mother's Name Verified: Yes RN Verifying : B Baidy RN Additional Verifying Personnel: M Izaiah RN WEIGHT/LENGTH BABY A Birthweight (gm): 4395 Infant Weight (lb): 9 Weight (oz): 11 Infant Length (in): 22.00 Length (cm): 55.88 CORD INFORMATION BABY A No. Cord Vessels: 3 Nuchal Cord : N/A Cord Blood Taken: Yes-For Eval (Mom's Blood Type - or O+) Suction: Mouth; Nose ASSESSMENT BABY A Infant Complications: Meconium Infant Complications- Other: see record Physical Findings- Other: see record Infant Respirations: Appears Normal Skin to Skin: Yes Skin to Skin Time (min): 45 Financial Services Director/ALS Called : Yes Care By: Kike Maravilla RN Transferred To: Nursery BABY B INFORMATION : N/A SIGNATURES Signature: with User ID: Nai : with User ID: Nai : I was personally available for consultation and serving as supervising physician for the MLP.
[2019-06-10 18:58] LABS: PRE-TRANSFUSION TOTAL BILI. 0.4 mg/dL (0.2-1.3)
[2019-06-10] MEDS ORDERED: OXYCODONE-ACETAMINOPHEN 5-325 MG TABLET PO ONE (19:30)
--- NOTE | 2019-06-10 20:39 | Warning Signs in Babies ---
VOD Warning Signs Datetime Report Generated by [facility]: 06/10/2019 20:38 VOD#608 -Warning Signs in Babies: Needs to be viewed. (06/10/2019 19:30:Ida Phelps RN)
[2019-06-10] MEDS ORDERED: DEXAMETHASONE SOD PHOS INJ 10 MG/1 ML VIAL IV ONE (21:00)
[2019-06-10] MEDS ORDERED: DIPHENHYDRAMINE HCL 50 MG/ML VIAL IV ONE (21:00)
[2019-06-10] MEDS: DEXAMETHASONE SOD PHOS INJ 10 MG/1 ML VIAL IV SCH (21:26)
[2019-06-11] MEDS: FAMOTIDINE 20 MG TABLET PO SCH ×3 (00:38→21:37)
[2019-06-11] MEDS ORDERED: DEXAMETHASONE SOD PHOSPHATE INJ 4 MG/1 ML VIAL ONE ×2 (02:29→02:30)
[2019-06-11] MEDS: DEXAMETHASONE SOD PHOS INJ 10 MG/1 ML VIAL IV SCH ×2 (02:50→06:54)
[2019-06-11] MEDS: OXYCODONE-ACETAMINOPHEN 5-325 MG TABLET PO PRN ×5 (04:50→21:38)
[2019-06-11] MEDS: KETOROLAC TROMETHAMINE INJ/PF 30 MG/1 ML SDV IV SCH (06:59)
[2019-06-11 07:56] LABS: HEMATOCRIT 23.7 % (36.0-47.0); HEMOGLOBIN 8.1 g/dL (12.0-15.5); MEAN CORPUSCULAR HEMOGLOBIN 29.1 pg (27.0-33.4); MEAN CORPUSCULAR VOLUME 86 fl (80-97); PLATELET COUNT 136 10^3/uL (150-450); RED BLOOD COUNT 2.77 10^6/uL (3.72-5.28); RED CELL DISTRIBUTION WIDTH 15.7 % (11.5-14.0); WHITE BLOOD COUNT 18.6 10^3/uL (4.0-10.5)
[2019-06-11] MEDS: PENICILLIN G POTASSIUM 2,500,000 UNIT in DEXTROSE 5%-WATER 50 ML IV SCH (08:03)
[2019-06-11] MEDS: DOCUSATE SODIUM 100 MG CAPSULE PO SCH ×2 (09:03→18:01)
[2019-06-11] MEDS: PRENATAL VITAMIN W DHA CAPSULE PO SCH (09:04)
--- NOTE | 2019-06-11 11:15 | PDOC PROGRESS REPORT ---
Subjective-OB Progress Note for:: 06/11/19 Subjective: reports + passing gas, bleeding slowing, pain controlled but asking for motrin and less percocet. wants IV out and pulse ox off. Physical Exam (OB) Vital Signs: Temp Pulse Resp BP Pulse Ox 97.8 F 87 18 119/73 93 06/11/19 07:26 06/11/19 07:26 06/11/19 07:26 06/11/19 07:26 06/11/19 07:26 Pulse Oximeter Continuous Start: 06/10/19 21:04 Freq: RTQ4 Status: Active Protocol: Document 06/11/19 05:05 DBE (Rec: 06/11/19 07:05 [email or web address]) Pulse Oximetry Assessment Oxygen Saturation (92-100) 94 Oxygen Delivery Method Room Air Fraction of Inspired Oxygen (FIO2) 21 Equipment Usage Equipment in Use Continuous SpO2 Machine # xx Intake & Output 06/10/19 06/11/19 06/12/19 06:59 06:59 06:59 Intake Total 1981 1348 Output Total 1350 Balance 1982 -2 - PIH/Pre-Eclampsia Headache: Absent Epigastric Pain: No Visual Changes: No - Incision: Well Approximated Closure Type: no s/s infection - Abdomen Description: Tender, Soft, Round Hernia Present: No Fundal Description: Firm, Midline Fundal Height: u/u - u/2 - Extremities Lower extremities: Marina's sign - neg Calf: Other - edema to BLE Objective-Diagnostic Laboratory: 06/11/19 07:41 06/10/19 13:10 06/09/19 06/10/19 06/10/19 14:29 10:14 13:05 WBC 20.9 H RBC 3.30 L Hgb 7.8 L D 9.8 L Hct 28.8 L MCV 87 MCH 29.8 MCHC 34.2 RDW 15.4 H Plt Count 137 L Seg Neutrophils % 83.7 H Sodium Potassium Chloride Carbon Dioxide Anion Gap BUN Creatinine Est GFR ( Amer) Glucose Calcium Total Bilirubin AST Alkaline Phosphatase Total Protein Albumin Urine Color Urine Appearance Urine pH Ur Specific Brethren Urine Protein Urine Glucose (UA) Urine Ketones Urine Blood Urine Nitrite Ur Leukocyte Esterase Blood Type A NEGATIVE Antibody Screen POSITIVE 06/10/19 06/10/19 06/10/19 13:10 15:15 15:15 WBC RBC Hgb Hct MCV MCH MCHC RDW Plt Count Seg Neutrophils % Sodium 130.7 L Potassium 4.3 Chloride 103 Carbon Dioxide 21 L Anion Gap 7 BUN 10 Creatinine 0.84 Est GFR ( Amer) > 60 Glucose 129 H Calcium 8.5 Total Bilirubin 0.3 AST 25 Alkaline Phosphatase 191 H Total Protein 4.7 L Albumin 2.2 L Urine Color Cancelled Cancelled Urine Appearance Cancelled Cancelled Urine pH Cancelled Cancelled Ur Specific Brethren Cancelled Cancelled Urine Protein Cancelled Cancelled Urine Glucose (UA) Cancelled Cancelled Urine Ketones Cancelled Cancelled Urine Blood Cancelled Cancelled Urine Nitrite Cancelled Cancelled Ur Leukocyte Esterase Cancelled Cancelled Blood Type Antibody Screen 06/10/19 06/11/19 06/11/19 15:15 07:41 07:41 WBC 18.6 H RBC 2.77 L Hgb 8.1 L Hct 23.7 L MCV 86 MCH 29.1 MCHC 34.0 RDW 15.7 H Plt Count 136 L Seg Neutrophils % Sodium Potassium Chloride Carbon Dioxide Anion Gap BUN Creatinine Est GFR ( Amer) Glucose Calcium Total Bilirubin AST Alkaline Phosphatase Total Protein Albumin Urine Color YELLOW Urine Appearance CLOUDY Urine pH 5.0 Ur Specific Brethren 1.029 Urine Protein 100 H Urine Glucose (UA) NEGATIVE Urine Ketones NEGATIVE Urine Blood LARGE H Urine Nitrite NEGATIVE Ur Leukocyte Esterase NEGATIVE Blood Type A NEGATIVE Antibody Screen Assessment and Plan(PN) - Assessment and Plan (1) Failure to progress in labor Is this a current diagnosis for this admission?: Yes (2) GDM, class A1 Is this a current diagnosis for this admission?: Yes (3) Obesity Qualifiers: Obesity type: due to excess calories Is this a current diagnosis for this admission?: Yes (4) Preeclampsia Qualifiers: Trimester: third trimester Qualified Code(s): O14.93 - Unspecified pre-ecla mpsia, third trimester Is this a current diagnosis for this admission?: Yes - Time Spent with Patient Time with patient: 15-25 minutes Medications reviewed and adjusted accordingly: Yes - Disposition Anticipated Discharge: Home Within: within 48 hours
[2019-06-11] MEDS: SIMETHICONE 80 MG TAB.CHEW PO PRN ×2 (11:37→18:01)
[2019-06-11] MEDS: IBUPROFEN 800 MG TABLET PO PRN ×2 (11:37→21:37)
[2019-06-12] MEDS: OXYCODONE-ACETAMINOPHEN 5-325 MG TABLET PO PRN ×5 (01:41→20:03)
[2019-06-12] MEDS: IBUPROFEN 800 MG TABLET PO PRN ×3 (06:10→23:30)
[2019-06-12] MEDS: DOCUSATE SODIUM 100 MG CAPSULE PO SCH ×2 (09:39→17:53)
[2019-06-12] MEDS: PRENATAL VITAMIN W DHA CAPSULE PO SCH (09:39)
[2019-06-12] MEDS: FAMOTIDINE 20 MG TABLET PO SCH ×2 (09:39→23:29)
--- NOTE | 2019-06-12 10:30 | PDOC PROGRESS REPORT ---
Subjective-OB Progress Note for:: 06/12/19 - POD #2, pt states still feeling slightly dizzy in the shower this morning. Able to ambulate to the BR w/out assistance. S/p failed IOL, Primary w/ 2 units PRBC yesterday AB negative, Rhogam given. Pt is Physical Exam (OB) Vital Signs: Temp Pulse Resp BP Pulse Ox 97.4 F 95 H 18 114/66 100 06/12/19 07:39 06/12/19 07:39 06/12/19 07:39 06/12/19 07:39 06/12/19 07:39 Pulse Oximeter Continuous Start: 06/10/19 21:04 Freq: RTQ4 Status: Complete Protocol: Document 06/11/19 05:05 DBE (Rec: 06/11/19 07:05 DBE [email or web address]) Pulse Oximetry Assessment Oxygen Saturation (92-100) 94 Oxygen Delivery Method Room Air Fraction of Inspired Oxygen (FIO2) 21 Equipment Usage Equipment in Use Continuous SpO2 Machine # xx Intake & Output 06/11/19 06/12/19 06/13/19 06:59 06:59 06:59 Intake Total 1348 1320 Output Total 1350 Balance -2 1320 - General General Appearance: Appears well, Alert - PIH/Pre-Eclampsia DTR's: 1 + Clonus: Negative Headache: Absent Epigastric Pain: No Visual Changes: No - Dressing Removed: Yes Incision: Well Approximated Closure Type: Surgical Glue - Lochia Lochia Amount: Scant < 10 ml Lochia Color: Rubra/Red - Abdomen Description: Soft Hernia Present: No Fundal Description: Firm, Midline Fundal Height: u/u - u/2 - Respiratory Respiratory Status: No respiratory distress Breath sounds: Clear - Abdominal Distension: No distension Tenderness: Nontender - Genitourinary Genitourinary Note: voiding - Extremities Upper extremity: Edema Lower extremities: Edema - Neurological Cognition: Normal Orientation: AAOx4 - Psychological Associated symptoms: Normal affect, Normal mood - Skin Skin Temperature: Warm Skin Moisture: Dry Objective-Diagnostic Laboratory: 06/11/19 07:41 06/10/19 13:10 06/11/19 07:41 Blood Type A NEGATIVE Assessment and Plan(PN) - Assessment and Plan (1) Acute blood loss as cause of postoperative anemia Is this a current diagnosis for this admission?: Yes (2) Blood transfusion during current hospitalisation Is this a current diagnosis for this admission?: Yes (3) Failure to progress in labor Is this a current diagnosis for this admission?: Yes (4) GDM, class A1 Is this a current diagnosis for this admission?: Yes (5) Gestational hypertension Qualifiers: Trimester: third trimester Qualified Code(s): O13.3 - Gestational [-induced] hypertension without significant proteinuria, third trimester Is this a current diagnosis for this admission?: Yes (6) Obesity Qualifiers: Obesity type: due to excess calories Is this a current diagnosis for this admission?: Yes (7) Preeclampsia Qualifiers: Trimester: third trimester Qualified Code(s): O14.93 - Unspecified pre-ecla mpsia, third trimester Is this a current diagnosis for this admission?: Yes Plan:: Check CBC today, Ambulation encouraged. Routine Post Op and PP orders, - Time Spent with Patient Medications reviewed and adjusted accordingly: Yes - Disposition Anticipated Discharge: Home Within: within 24 hours
[2019-06-12 11:53] LABS: HEMATOCRIT 21.9 % (36.0-47.0); MEAN CORPUSCULAR HEMOGLOBIN 29.3 pg (27.0-33.4); MEAN CORPUSCULAR HGB CONC 33.9 g/dL (32.0-36.0); MEAN CORPUSCULAR VOLUME 87 fl (80-97); PLATELET COUNT 165 10^3/uL (150-450); RED BLOOD COUNT 2.53 10^6/uL (3.72-5.28); RED CELL DISTRIBUTION WIDTH 15.7 % (11.5-14.0); WHITE BLOOD COUNT 13.4 10^3/uL (4.0-10.5)
[2019-06-12 11:57] LABS: HEMOGLOBIN 7.4 g/dL (12.0-15.5)
[2019-06-12 13:26] LABS: ABSOLUTE RETICS # 0.092 10^6/uL (0.028-0.122); RETICULOCYTE COUNT (AUTO) 3.62 % (0.66-2.85)
[2019-06-13] MEDS: OXYCODONE-ACETAMINOPHEN 5-325 MG TABLET PO PRN ×4 (03:17→19:15)
[2019-06-13 07:03] LABS: ABSOLUTE EOSINOPHILS # (AUTO) 0.1 10^3/uL (0.0-0.6); ABSOLUTE MONOCYTES (AUTO) 0.7 10^3/uL (0.1-1.4); ABSOLUTE NEUT (AUTO) 5.8 10^3/uL (1.7-8.2); BASOPHILS % (AUTO) 0.4 % (0-2); HEMATOCRIT 20.8 % (36.0-47.0); LYMPHOCYTES % (AUTO) 31.2 % (13-45); MEAN CORPUSCULAR HEMOGLOBIN 29.8 pg (27.0-33.4); MEAN CORPUSCULAR HGB CONC 34.7 g/dL (32.0-36.0); MEAN CORPUSCULAR VOLUME 86 fl (80-97); MONOCYTES % (AUTO) 7.5 % (3-13); PLATELET COUNT 205 10^3/uL (150-450); RED BLOOD COUNT 2.42 10^6/uL (3.72-5.28); RED CELL DISTRIBUTION WIDTH 15.5 % (11.5-14.0); SEGMENTED NEUTROPHILS % (AUTO) 59.9 % (42-78); TOTAL CELLS COUNTED % (AUTO) 100 %; WHITE BLOOD COUNT 9.7 10^3/uL (4.0-10.5)
[2019-06-13 07:07] LABS: HEMOGLOBIN 7.2 g/dL (12.0-15.5)
[2019-06-13] MEDS ORDERED: NORMAL SALINE 250 ML IV PRN (07:33)
--- NOTE | 2019-06-13 07:44 | PDOC CONSULTATION ---
Consultation Consult Date: 06/13/19 Provider Consulted: TERENCE AGUILAR Consult reason:: Hematology/Oncology consultation was requested for patient with anemia after and transfusion reaction. History of Present Illness Admission Date/PCP: 06/07/19 14:17 NEMO AMBRIZ DO History of Present Illness: GIOVANNA OWEN is a 18 year old female who just gave to her first child after her second . She had complications including pre-eclampsia and did have large amount of blood loss during delivery/surgery. She was given 2 units pRBCs on 06/10/2019 but had a mild reaction. HGB since that time has continued to decline. Today, patient states that she is still having pain at the incision site. She is having some vaginal bleeding. She feels very weak and dizzy. However, her milk has come in and baby is feeding well. Past Medical History Cardiac Medical History: Reports: None Pulmonary Medical History: Reports: None Malignancy Medical History: Reports: None Hematology: Reports: None Past Surgical History Past Surgical History: Reports: Section Social History Information Source: Patient Lives with: Spouse/Significant other Smoking Status: Unknown if Ever Smoked Drugs: None Family History Parental Family History Reviewed: Yes - Father adopted. Mother drug abuser. Children Family History Reviewed: NA Sibling(s) Family History Reviewed.: No Medication/Allergy Home Medications: Vit/Dha [ Multi + Dha Capsule] 1 cap PO DAILY 05/26/19 Calcium Carbonate [Tums] 2 tab DAILY 06/06/19 Allergies/Adverse Reactions: No Known Allergies Allergy (Unverified 05/26/19 11:20) Review of Systems Constitutional: ABSENT: fever(s), headache(s) Eyes: ABSENT: visual disturbances Ears: ABSENT: hearing changes Nose, Mouth, and Throat: ABSENT: sore throat Cardiovascular: ABSENT: chest pain Respiratory: ABSENT: dyspnea Gastrointestinal: PRESENT: abdominal pain, nausea Genitourinary: ABSENT: dysuria Musculoskeletal: PRESENT: muscle weakness Integumentary: ABSENT: rash Neurological: PRESENT: vertigo, weakness Hematologic/Lymphatic: ABSENT: easy bleeding Physical Exam Vital Signs: Temp Pulse Resp BP Pulse Ox 98.1 F 97 H 16 132/71 H 99 06/12/19 23:52 06/12/19 23:52 06/12/19 23:52 06/12/19 23:52 06/12/19 23:52 Pulse Oximeter Continuous Start: 06/10/19 21:04 Freq: RTQ4 Status: Complete Protocol: Document 06/11/19 05:05 CK (Rec: 06/11/19 07:05 [email or web address]) Pulse Oximetry Assessment Oxygen Saturation (92-100) 94 Oxygen Delivery Method Room Air Fraction of Inspired Oxygen (FIO2) 21 Equipment Usage Equipment in Use Continuous SpO2 Machine # xx Intake & Output 06/12/19 06/13/19 06/14/19 06:59 06:59 06:59 Intake Total 1320 Balance 1320 General appearance: PRESENT: no acute distress, obese Exam: 18 year old female. Head exam: PRESENT: normocephalic Eye exam: PRESENT: EOMI, PERRLA Mouth exam: PRESENT: tongue midline Neck exam: ABSENT: lymphadenopathy, tenderness Respiratory exam: PRESENT: clear to auscultation fabiola, unlabored Cardiovascular exam: PRESENT: RRR GI/Abdominal exam: PRESENT: other - Incision site covered. Non-tender to light palpation. Could not examine fully for organomegaly. Extremities exam: PRESENT: +1 edema Musculoskeletal exam: PRESENT: normal inspection Neurological exam: PRESENT: alert, awake Psychiatric exam: PRESENT: appropriate affect Skin exam: PRESENT: normal color Results Laboratory Results: 06/13/19 06:50 06/10/19 13:10 06/12/19 06/12/19 06/13/19 10:59 10:59 06:50 WBC 13.4 H 9.7 RBC 2.53 L 2.42 L Hgb 7.4 L 7.2 L Hct 21.9 L 20.8 L MCV 87 86 MCH 29.3 29.8 MCHC 33.9 34.7 RDW 15.7 H 15.5 H Plt Count 165 205 Seg Neutrophils % 59.9 Retic Count (auto) 3.62 H Impressions: Obstetrics Ultrasound 06/06/19 00:00 IMPRESSION: LIMITED OBSTETRICAL ULTRASOUND WITH MEASURED PARAMETERS DELINEATED ABOVE. Trimester of : Third trimester - 28 weeks to delivery. Assessment & Plan - Diagnosis (1) Acute blood loss as cause of postoperative anemia Is this a current diagnosis for this admission?: Yes Plan: HGB this morning is stable. LDH is normal. No evidence of current hemolysis. Prior HGB reading of 9 may have been inaccurate. I will order 2 units pRBCs. She has now received RhoGam injection which may also help with the transfusion reaction. Will watch closely for reaction. (2) Blood transfusion during current hospitalisation Is this a current diagnosis for this admission?: Yes Plan: Will pre-med transfusion with Benadryl and Tylenol. Consider steroids if further reaction. (3) Obesity Qualifiers: Obesity type: due to excess calories Is this a current diagnosis for this admission?: Yes (4) Preeclampsia Qualifiers: Trimester: third trimester Qualified Code(s): O14.93 - Unspecified pre- eclampsia, third trimester Is this a current diagnosis for this admission?: Yes - Plan Summary Plan Summary: Patient was discussed with Dr. Portillo. I would like to see her in the office for follow-up in about 6 weeks to check HGB, and further anemia studies if necessary. I doubt ferritin will be accurate in this situation currently.
[2019-06-13] MEDS: IBUPROFEN 800 MG TABLET PO PRN ×2 (09:13→17:32)
[2019-06-13] MEDS: FAMOTIDINE 20 MG TABLET PO SCH ×2 (09:13→22:44)
[2019-06-13] MEDS: DOCUSATE SODIUM 100 MG CAPSULE PO SCH ×2 (09:13→17:32)
[2019-06-13] MEDS: PRENATAL VITAMIN W DHA CAPSULE PO SCH (09:15)
--- NOTE | 2019-06-13 11:24 | PDOC PROGRESS REPORT ---
Subjective-OB Progress Note for:: 06/13/19 Subjective: Pt doing well, she denies pain. Ambulatory, but feeling very tired. She reports light bleeding without clots and is voiding without difficulty. Reg diet and + flatus. She was seen by hematology today. Physical Exam (OB) Vital Signs: Temp Pulse Resp BP Pulse Ox 97.7 F 101 H 16 133/65 H 98 06/13/19 08:00 06/13/19 08:00 06/13/19 08:00 06/13/19 08:00 06/13/19 08:00 Pulse Oximeter Continuous Start: 06/10/19 21:04 Freq: RTQ4 Status: Complete Protocol: Document 06/11/19 05:05 DBE (Rec: 06/11/19 07:05 [email or web address] [email or web address]) Pulse Oximetry Assessment Oxygen Saturation (92-100) 94 Oxygen Delivery Method Room Air Fraction of Inspired Oxygen (FIO2) 21 Equipment Usage Equipment in Use Continuous SpO2 Machine # xx Intake & Output 06/12/19 06/13/19 06/14/19 06:59 06:59 06:59 Intake Total 1320 300 Balance 1320 300 - Dressing Removed: No Incision: Open, Dressing Closure Type: Surgical Glue - Lochia Lochia Amount: Moderate 25-50 ml Lochia Color: Rubra/Red - Abdomen Description: Tender, Soft Hernia Present: No Fundal Description: Firm Fundal Height: u/u - u/2 Objective-Diagnostic Laboratory: 06/13/19 06:50 06/10/19 13:10 06/11/19 06/12/19 06/12/19 07:41 10:59 10:59 WBC 13.4 H RBC 2.53 L Hgb 7.4 L Hct 21.9 L MCV 87 MCH 29.3 MCHC 33.9 RDW 15.7 H Plt Count 165 Seg Neutrophils % Retic Count (auto) 3.62 H Blood Type A NEGATIVE Antibody Screen 06/13/19 06/13/19 06:50 08:18 WBC 9.7 RBC 2.42 L Hgb 7.2 L Hct 20.8 L MCV 86 MCH 29.8 MCHC 34.7 RDW 15.5 H Plt Count 205 Seg Neutrophils % 59.9 Retic Count (auto) Blood Type A NEGATIVE Antibody Screen POSITIVE Assessment and Plan(PN) - Assessment and Plan (1) Acute blood loss as cause of postoperative anemia Is this a current diagnosis for this admission?: Yes (2) Blood transfusion during current hospitalisation Is this a current diagnosis for this admission?: Yes (3) Failure to progress in labor Is this a current diagnosis for this admission?: Yes (4) GDM, class A1 Is this a current diagnosis for this admission?: Yes (5) Gestational hypertension Qualifiers: Trimester: third trimester Qualified Code(s): O13.3 - Gestational [-induced] hypertension without significant proteinuria, third trimester Is this a current diagnosis for this admission?: Yes (6) Obesity Qualifiers: Obesity type: due to excess calories Is this a current diagnosis for this admission?: Yes (7) Preeclampsia Qualifiers: Trimester: third trimester Qualified Code(s): O14.93 - Unspecified pre- eclampsia, third trimester Is this a current diagnosis for this admission?: Yes - Time Spent with Patient Time with patient: Less than 15 minutes Medications reviewed and adjusted accordingly: Yes - Disposition Anticipated Discharge: Home Within: within 24 hours
[2019-06-13] MEDS ORDERED: DIPHENHYDRAMINE HCL 25 MG CAPSULE ONE (11:39)
[2019-06-13] MEDS ORDERED: FUROSEMIDE INJ/PF 20 MG/2 ML SDV IV ONE (15:02)
[2019-06-14] MEDS: OXYCODONE-ACETAMINOPHEN 5-325 MG TABLET PO PRN ×2 (00:57→09:42)
[2019-06-14] MEDS: IBUPROFEN 800 MG TABLET PO PRN (05:58)
[2019-06-14 07:41] LABS: ABSOLUTE EOSINOPHILS # (AUTO) 0.2 10^3/uL (0.0-0.6); ABSOLUTE LYMPHOCYTES (AUTO) 2.7 10^3/uL (0.5-4.7); ABSOLUTE MONOCYTES (AUTO) 0.7 10^3/uL (0.1-1.4); ABSOLUTE NEUT (AUTO) 6.1 10^3/uL (1.7-8.2); BASOPHILS % (AUTO) 0.2 % (0-2); EOSINOPHILS % (AUTO) 2.2 % (0-6); HEMATOCRIT 26.2 % (36.0-47.0); HEMOGLOBIN 9.2 g/dL (12.0-15.5); LYMPHOCYTES % (AUTO) 27.7 % (13-45); MEAN CORPUSCULAR HEMOGLOBIN 31.2 pg (27.0-33.4); MEAN CORPUSCULAR HGB CONC 35.2 g/dL (32.0-36.0); MEAN CORPUSCULAR VOLUME 89 fl (80-97); MONOCYTES % (AUTO) 7.1 % (3-13); PLATELET COUNT 227 10^3/uL (150-450); RED BLOOD COUNT 2.96 10^6/uL (3.72-5.28); RED CELL DISTRIBUTION WIDTH 15.3 % (11.5-14.0); SEGMENTED NEUTROPHILS % (AUTO) 62.8 % (42-78); TOTAL CELLS COUNTED % (AUTO) 100 %; WHITE BLOOD COUNT 9.7 10^3/uL (4.0-10.5)
--- NOTE | 2019-06-14 07:57 | PDOC PROGRESS REPORT ---
Subjective Progress Note for:: 06/14/19 Subjective:: Patient feeling much better today. Able to stay awake and sit up without difficulty. No problems with blood transfusion yesterday. She is anxious to go home. Reason For Visit: INDUCTION OF LABOR Physical Exam Vital Signs: Temp Pulse Resp BP Pulse Ox 97.5 F 91 H 17 135/79 H 96 06/14/19 05:07 06/14/19 05:07 06/14/19 05:07 06/14/19 05:07 06/14/19 05:07 Pulse Oximeter Continuous Start: 06/10/19 21:04 Freq: RTQ4 Status: Complete Protocol: Document 06/11/19 05:05 DBE (Rec: 06/11/19 07:05 DBE [email or web address]) Pulse Oximetry Assessment Oxygen Saturation (92-100) 94 Oxygen Delivery Method Room Air Fraction of Inspired Oxygen (FIO2) 21 Equipment Usage Equipment in Use Continuous SpO2 Machine # xx Intake & Output 06/13/19 06/14/19 06/15/19 06:59 06:59 06:59 Intake Total 2700 Balance 2700 General appearance: PRESENT: obese Head exam: PRESENT: normocephalic Respiratory exam: PRESENT: unlabored Musculoskeletal exam: PRESENT: normal inspection Neurological exam: PRESENT: alert, awake Psychiatric exam: PRESENT: appropriate affect Skin exam: PRESENT: normal color Results Laboratory Results: 06/14/19 06:22 06/10/19 13:10 06/13/19 06/14/19 08:18 06:22 WBC 9.7 RBC 2.96 L Hgb 9.2 L Hct 26.2 L MCV 89 MCH 31.2 MCHC 35.2 RDW 15.3 H Plt Count 227 Seg Neutrophils % 62.8 Blood Type A NEGATIVE Antibody Screen POSITIVE Impressions: Obstetrics Ultrasound 06/06/19 00:00 IMPRESSION: LIMITED OBSTETRICAL ULTRASOUND WITH MEASURED PARAMETERS DELINEATED ABOVE. Trimester of : Third trimester - 28 weeks to delivery. Assessment & Plan - Diagnosis (1) Acute blood loss as cause of postoperative anemia Is this a current diagnosis for this admission?: Yes Plan: Much improved after blood transfusion yesterday. (2) Blood transfusion during current hospitalisation Is this a current diagnosis for this admission?: Yes (3) Obesity Qualifiers: Obesity type: due to excess calories Is this a current diagnosis for this admission?: Yes (4) Preeclampsia Qualifiers: Trimester: third trimester Qualified Code(s): O14.93 - Unspecified pre- eclampsia, third trimester Is this a current diagnosis for this admission?: Yes - Time Time Spent with patient: Less than 15 minutes - Plan Summary Plan Summary: HGB responded nicely to transfusion. No evidence of hemolysis. Agree with discharge, as per primary team. I will arrange to repeat CBC in about 6 weeks. She should continue pre-roya vitamins. Please call if needed.
[2019-06-14] MEDS: DOCUSATE SODIUM 100 MG CAPSULE PO SCH (09:32)
[2019-06-14] MEDS: FAMOTIDINE 20 MG TABLET PO SCH (09:32)
[2019-06-14] MEDS: PRENATAL VITAMIN W DHA CAPSULE PO SCH (09:32)
--- NOTE | 2019-06-14 12:43 | PDOC DISCHARGE SUMMARY ---
Impression - Admit/DC Date/PCP Admission Date/Primary Care Provider: 06/07/19 14:17 NEMO AMBRIZ, DO Discharge Date: 06/14/19 - Discharge Diagnosis (1) Failure to progress in labor Is this a current diagnosis for this admission?: Yes (2) GDM, class A1 Is this a current diagnosis for this admission?: Yes (3) Obesity Is this a current diagnosis for this admission?: Yes (4) Preeclampsia Is this a current diagnosis for this admission?: Yes - Additional Information Discharge Diet: Regular Discharge Activity: Activity As Tolerated, No Lifting Over 10 Pounds, No Lifting/Push/Pulling, No tub bath Referrals: TERENCE AGUILAR MD [ACTIVE STAFF] - (In about 6 weeks with CBC on arrival. Please call to arrange. ) SANTA BARNETT MD [ACTIVE STAFF] - Prescriptions: Ibuprofen [Motrin 800 mg Tablet] 800 mg PO Q8HP PRN #90 tablet PRN Reason: Oxycodone HCl/Acetaminophen [Percocet 5-325 mg Tablet] 1 tab PO Q4HP PRN #30 tablet PRN Reason: Home Medications: Vit/Dha [ Multi + Dha Capsule] 1 cap PO DAILY 05/26/19 Ibuprofen [Motrin 800 mg Tablet] 800 mg PO Q8HP PRN #90 tablet 06/14/19 Oxycodone HCl/Acetaminophen [Percocet 5-325 mg Tablet] 1 tab PO Q4HP PRN #30 tablet 06/14/19 HPI Gestational Age: 36 Reason(s) for Admission: Obstetric Complications Procedures: NST Intrapartum Procedure(s): : Low Cervical, Transverse Results Laboratory Results: WBC 9.7 10^3/uL (4.0-10.5) 06/14/19 06:22 RBC 2.96 10^6/uL (3.72-5.28) L 06/14/19 06:22 Hgb 9.2 g/dL (12.0-15.5) L 06/14/19 06:22 Hct 26.2 % (36.0-47.0) L 06/14/19 06:22 MCV 89 fl (80-97) 06/14/19 06:22 MCH 31.2 pg (27.0-33.4) 06/14/19 06:22 MCHC 35.2 g/dL (32.0-36.0) 06/14/19 06:22 RDW 15.3 % (11.5-14.0) H 06/14/19 06:22 Plt Count 227 10^3/uL (150-450) 06/14/19 06:22 Lymph % (Auto) 27.7 % (13-45) 06/14/19 06:22 Piute % (Auto) 7.1 % (3-13) 06/14/19 06:22 Eos % (Auto) 2.2 % (0-6) 06/14/19 06:22 Baso % (Auto) 0.2 % (0-2) 06/14/19 06:22 Reticulocyte # 0.092 10^6/uL (0.028-0.122) 06/12/19 10:59 Absolute Neuts (auto) 6.1 10^3/uL (1.7-8.2) 06/14/19 06:22 Absolute Lymphs (auto) 2.7 10^3/uL (0.5-4.7) 06/14/19 06:22 Absolute Monos (auto) 0.7 10^3/uL (0.1-1.4) 06/14/19 06:22 Absolute Eos (auto) 0.2 10^3/uL (0.0-0.6) 06/14/19 06:22 Absolute Basos (auto) 0.0 10^3/uL (0.0-0.2) 06/14/19 06:22 Total Counted 100 06/09/19 14:29 Seg Neutrophils % 62.8 % (42-78) 06/14/19 06:22 Seg Neuts % (Manual) 81 % (42-78) H 06/09/19 14:29 Lymphocytes % (Manual) 15 % (13-45) 06/09/19 14:29 Monocytes % (Manual) 4 % (3-13) 06/09/19 14:29 Eosinophils % (Manual) 0 % (0-6) 06/09/19 14:29 Basophils % (Manual) 0 % (0-2) 06/09/19 14:29 Abs Neuts (Manual) 11.3 10^3/uL (1.7-8.2) H 06/09/19 14:29 Abs Lymphs (Manual) 2.1 10^3/uL (0.5-4.7) 06/09/19 14:29 Abs Monocytes (Manual) 0.6 10^3/uL (0.1-1.4) 06/09/19 14:29 Absolute Eos (Manual) 0.0 10^3/uL (0.0-0.6) 06/09/19 14:29 Abs Basophils (Manual) 0.0 10^3/uL (0.0-0.2) 06/09/19 14:29 Platelet Estimate Cancelled 06/10/19 09:09 Platelet Comment ADEQUATE 06/09/19 14:29 Polychromasia SLIGHT 06/09/19 14:29 Hypochromasia SLIGHT 06/09/19 14:29 Retic Count (auto) 3.62 % (0.66-2.85) H 06/12/19 10:59 PT 13.8 SEC (11.4-15.4) 06/10/19 13:10 INR 1.06 06/10/19 13:10 APTT < 23.0 SEC (23.5-35.8) L 06/10/19 13:10 Sodium 130.7 mmol/L (137-145) L 06/10/19 13:10 Potassium 4.3 mmol/L (3.6-5.0) 06/10/19 13:10 Chloride 103 mmol/L (98-107) 06/10/19 13:10 Carbon Dioxide 21 mmol/L (22-30) L 06/10/19 13:10 Anion Gap 7 (5-19) 06/10/19 13:10 BUN 10 mg/dL (7-20) 06/10/19 13:10 BUN Pre-Transfusion 9 mg/dL (7-20) 06/10/19 15:15 BUN Post-Transfusion 10 mg/dL (7-20) 06/10/19 15:15 Creatinine 0.84 mg/dL (0.52-1.25) 06/10/19 13:10 Est GFR ( Amer) > 60 (>60) 06/10/19 13:10 Est GFR (MDRD) Non-Af > 60 (>60) 06/10/19 13:10 Glucose 129 mg/dL (75-110) H 06/10/19 13:10 POC Glucose 87 mg/dL (70-110) 06/09/19 11:48 Uric Acid 7.9 mg/dL (2.5-6.2) H 06/10/19 06:51 Calcium 8.5 mg/dL (8.4-10.2) 06/10/19 13:10 Total Bilirubin 0.3 mg/dL (0.2-1.3) 06/10/19 13:10 Pre-Trans Tot Bilirubin 0.4 mg/dL (0.2-1.3) 06/10/19 15:15 Post-Trans Total Bili 0.4 mg/dL (0.2-1.3) 06/10/19 15:15 Direct Bilirubin 0.3 mg/dL (0.0-0.4) 06/10/19 13:10 Neonat Total Bilirubin Not Reportable 06/10/19 13:10 Neonat Direct Bilirubin Not Reportable 06/10/19 13:10 Neonat Indirect Bili Not Reportable 06/10/19 13:10 AST 25 U/L (5-30) 06/10/19 13:10 ALT 20 U/L (<35) 06/10/19 13:10 Alkaline Phosphatase 191 U/L (50-135) H 06/10/19 13:10 Lactate Dehydrogenase 221 U/L (120-246) 06/14/19 06:22 Total Protein 4.7 g/dL (6.3-8.2) L 06/10/19 13:10 Albumin 2.2 g/dL (3.7-5.6) L 06/10/19 13:10 Urine Color Cancelled 06/10/19 15:15 Urine Color Cancelled 06/10/19 15:15 Urine Color YELLOW 06/10/19 15:15 Urine Appearance CLOUDY 06/10/19 15:15 Urine Appearance Cancelled 06/10/19 15:15 Urine Appearance Cancelled 06/10/19 15:15 Urine pH 5.0 (5.0-9.0) 06/10/19 15:15 Urine pH Cancelled 06/10/19 15:15 Urine pH Cancelled 06/10/19 15:15 Ur Specific [place] 1.029 06/10/19 15:15 Ur Specific [place] Cancelled 06/10/19 15:15 Ur Specific [place] Cancelled 06/10/19 15:15 Urine Protein 100 mg/dL (NEGATIVE) H 06/10/19 15:15 Urine Protein Cancelled 06/10/19 15:15 Urine Protein Cancelled 06/10/19 15:15 Urine Glucose (UA) Cancelled 06/10/19 15:15 Urine Glucose (UA) Cancelled 06/10/19 15:15 Urine Glucose (UA) NEGATIVE mg/dL (NEGATIVE) 06/10/19 15:15 Urine Ketones Cancelled 06/10/19 15:15 Urine Ketones Cancelled 06/10/19 15:15 Urine Ketones NEGATIVE mg/dL (NEGATIVE) 06/10/19 15:15 Urine Blood Cancelled 06/10/19 15:15 Urine Blood Cancelled 06/10/19 15:15 Urine Blood LARGE (NEGATIVE) H 06/10/19 15:15 Urine Nitrite Cancelled 06/10/19 15:15 Urine Nitrite Cancelled 06/10/19 15:15 Urine Nitrite NEGATIVE (NEGATIVE) 06/10/19 15:15 Urine Bilirubin Cancelled 06/10/19 15:15 Urine Bilirubin Cancelled 06/10/19 15:15 Urine Bilirubin NEGATIVE (NEGATIVE) 06/10/19 15:15 Urine Urobilinogen Cancelled 06/10/19 15:15 Urine Urobilinogen Cancelled 06/10/19 15:15 Urine Urobilinogen NEGATIVE mg/dL (<2.0) 06/10/19 15:15 Ur Leukocyte Esterase Cancelled 06/10/19 15:15 Ur Leukocyte Esterase Cancelled 06/10/19 15:15 Ur Leukocyte Esterase NEGATIVE (NEGATIVE) 06/10/19 15:15 Ur 24 Hour Volume 3300 mL 06/06/19 10:45 Urine Creatinine 129.2 mg/dL (16-327) 06/06/19 10:54 Ur Total Protein 24 Hr 947 mg/day (42-225) H 06/06/19 10:45 Protein/Creatinin Ratio 0.3 mg/mg (0.0-0.2) H 06/06/19 10:54 Urine Total Protein 32.5 mg/dL (<12) H 06/06/19 10:54 Urine Ascorbic Acid NEGATIVE (NEGATIVE) 06/06/19 10:54 Membranes Rupture NEGATIVE (NEGATIVE) 06/06/19 13:58 Epi Cells (Wet Prep) 4+ EPITHELIALS SEEN 06/06/19 13:58 Bacteria (Wet Prep) 4+ BACTERIA SEEN 06/06/19 13:58 Trichomonas (Wet Prep) NO TRICHOMONAS SEEN 06/06/19 13:58 Vaginal WBC 3+ WBCS SEEN 06/06/19 13:58 Vaginal RBC FEW RBCS SEEN 06/06/19 13:58 Vaginal Yeast NO YEAST SEEN 06/06/19 13:58 Urine Opiates Screen NEGATIVE 06/06/19 10:54 Urine Methadone Screen NEGATIVE 06/06/19 10:54 Ur Barbiturates Screen NEGATIVE 06/06/19 10:54 Ur Phencyclidine Scrn NEGATIVE 06/06/19 10:54 Ur Amphetamines Screen NEGATIVE 06/06/19 10:54 U Benzodiazepines Scrn NEGATIVE 06/06/19 10:54 Urine Cocaine Screen NEGATIVE 06/06/19 10:54 U Marijuana (THC) Screen NEGATIVE 06/06/19 10:54 Slides for Path Review Cancelled 06/10/19 09:09 Blood Type A NEGATIVE 06/13/19 08:18 Blood Type Confirm A NEGATIVE 06/10/19 09:09 Antibody Screen POSITIVE 06/13/19 08:18 Antibody Identification RHOGAM INDUCED ANTI-D 06/13/19 08:18 Screen NEGATIVE 06/11/19 07:41 Crossmatch See Detail 06/13/19 08:18 Donor Unit # Cancelled 06/10/19 15:15 Pre-Trans Specimen Cancelled 06/10/19 15:15 Pre-Trans JOSE IgG Cancelled 06/10/19 15:15 Pre-Trans JOSE Poly Cancelled 06/10/19 15:15 Post-Trans JOSE IgG Cancelled 06/10/19 15:15 Post-Trans JOSE Poly Cancelled 06/10/19 15:15 Reaction Path Interpret Cancelled 06/10/19 15:15 Reaction Path Interpret PATHOLOGIST REVIEWED 06/10/19 15:15 Impressions: Obstetrics Ultrasound 06/06/19 00:00 IMPRESSION: LIMITED OBSTETRICAL ULTRASOUND WITH MEASURED PARAMETERS DELINEATED ABOVE. Trimester of : Third trimester - 28 weeks to delivery. Plan Plan of Treatment: follow up in one week at [facility] for incision check
[2019-06-14 13:48] VITALS: BP 131/79
== END 2019-06-14 15:23 | disposition home or self-care (01) | DRG 787 ==
LOC: LC 10:37 → LR 13:00 → 2S 14:45 → OBSVTOIN 06-07 14:17 → LR 06-08 13:14 → 2S 06-10 21:40
PROVIDERS: ADMIT Obstetrics & Gynecology; ATTEND Obstetrics & Gynecology
PROC: 3E033VJ Introduction of Other Hormone into Peripheral Vein, Percutaneous Approach (ICD-10-PCS; 2019-06-07)
PROC: 10D00Z1 Extraction of Products of Conception, Low, Open Approach (ICD-10-PCS; principal; 2019-06-10)
PROC: 30233L1 Transfusion of Nonautologous Fresh Plasma into Peripheral Vein, Percutaneous Approach (ICD-10-PCS; 2019-06-10)
PROC: 30233N1 Transfusion of Nonautologous Red Blood Cells into Peripheral Vein, Percutaneous Approach (ICD-10-PCS; 2019-06-10)
PROC: 3E0234Z Introduction of Serum, Toxoid and Vaccine into Muscle, Percutaneous Approach (ICD-10-PCS; 2019-06-11)
DX: O14.14 Severe pre-eclampsia complicating childbirth (principal); D62 Acute posthemorrhagic anemia; O24.429 Gestational diabetes mellitus in childbirth, unspecified control; O26.893 Other specified pregnancy related conditions, third trimester; O99.214 Obesity complicating childbirth; O90.81 Anemia of the puerperium; E66.09 Other obesity due to excess calories; O63.1 Prolonged second stage (of labor); O99.824 Streptococcus B carrier state complicating childbirth; Z67.11 Type A blood, Rh negative; Z23 Encounter for immunization; Z37.0 Single live birth
CPT/HCPCS: 1961; 36415; 36430; 59025; 76815; 80053; 80307; 81002; 81005; 82570; 82962; 83615; 84112; 84156; 84550; 85025; 85027; 85045; 85461; 85610; 85730; 86850; 86870; 86900; 86901; 86920; 86922; 87070; 87210; 88307; 94760; C1758; G0378; G0379; J0131; J0171; J0360; J0690; J0702; J1100; J1170; J1200; J1885; J1940; J2210; J2270; J2370; J2405; J2540; J2550; J2590; J2765; J2790; J3010; J3475; J3490; J7060; P9016; P9017; S0028; S0119